=== PATIENT | male | born 1990 | race Hispanic/Latino ===

== ENCOUNTER 2017-03-24 06:38 | Day surgery (SDC) | payer MEDICAID ==
[~2017-03-24 06:38] MED LIST: SODIUM CHLORIDE 0.9% 1000ML 1,000 ML IV ONE
[2017-03-24 06:47] VITALS: BP 123/69
[2017-03-24] MEDS ORDERED: FENTANYL CITRATE PF 50 MCG/1 ML 2ML VIAL ONE (07:33)
[2017-03-24] MEDS ORDERED: PROPOFOL 10 MG/ML 20ML VIAL IV ONE (07:34)
== END 2017-03-24 08:18 | disposition home or self-care (01) ==
LOC: DAH 06:38
PROVIDERS: ATTEND Internal Medicine
DX: I85.00 Esophageal varices without bleeding (principal); B96.81 Helicobacter pylori [H. pylori] as the cause of diseases classified elsewhere; K29.50 Unspecified chronic gastritis without bleeding; K31.89 Other diseases of stomach and duodenum; Q87.3 Congenital malformation syndromes involving early overgrowth
CPT/HCPCS: 43239; 43244; 88342; A4606; A4649; J2704; J3010; J7030; G9654

== ENCOUNTER 2017-04-28 06:02 | Day surgery (SDC) | payer MEDICAID ==
[~2017-04-28] VITALS: Ht 177.8 cm; Wt 100.2 kg
[2017-04-28 07:06] VITALS: BP 111/62
== END 2017-04-28 08:26 ==
LOC: DAH 06:02
PROVIDERS: ATTEND Internal Medicine
DX: I85.00 Esophageal varices without bleeding (principal); K31.89 Other diseases of stomach and duodenum
CPT/HCPCS: 43244; A4606